=== PATIENT | female | born 1995 ===

== ENCOUNTER 2019-09-19 18:27 | Inpatient (IN) | payer MEDICAID, SELFPAY ==
[2019-09-19 18:27] VITALS: BP 131/95; PULSE 128; RESP 17; O2SAT 98; BMI 24.0
--- NOTE | 2019-09-19 18:36 | XR_ITS ---
WS: [id number] PORTABLE CHEST HISTORY: cough COMPARISON: None available. Lungs are clear and well expanded. No pleural effusion or pneumothorax. Cardiac size: Normal. Mediastinum/Aorta: Normal mediastinum. No osseous abnormality seen. XR/XR chest 1V portable [id number] IMPRESSION: Unremarkable portable chest.
--- NOTE | 2019-09-19 18:36 | ECG_ITS ---
Measurements Intervals [place] Rate: 109 P: 74 AR: 142 QRS: 85 QRSD: 80 T: 53 QT: 371 QTc: 502 SINUS TACHYCARDIA RIGHT ATRIAL ENLARGEMENT [0.3mV P WAVE] LEFT ATRIAL ENLARGEMENT [-0.15mV P WAVE IN V1/V2] NONSPECIFIC ST & T-WAVE ABNORMALITY No previous ECG available for comparison Electronically Signed On 09-20-2019 20:29:13 CDT by Cabrera Maynard M.D. [id number]
--- NOTE | 2019-09-19 18:41 | ED_ITS ---
HPI - Psych General: Chief Complaint: Psychiatric Symptoms Stated Complaint: ams Time Seen by Provider: 09/19/19 18:33 History of Present Illness: HPI Narrative: Sandra is a 24-year-old female brought in by EMS after family called due to her erratic behavior. The patient was dropped off at their house by someone and she was acting erratic and appeared to be hallucinating. Here the patient does not reliably answer any questions and appears to be talking and seeing people that are not there. She appears acutely psychotic. She is somewhat agitated and aggravated and show signs of hostility to me and nursing staff. Review of Systems General: Reports: ROS unobtainable due to mental status PFSH ED PFSH: Social History Smoking and tobacco status: unknown if ever smoked Physical Exam Const: EXAM LIMITATIONS: altered mental status and behavioral limitations GENERAL APPEARANCE: anxious and combative ORIENTATION/CONSCIOUSNESS: Yes awake HENMT: COMMON NORMALS: normocephalic, head/scalp atraumatic, hearing grossly normal bilaterally, external ears normal, EAC's normal, external nose normal and moist oral mucous membranes HEAD & SCALP: normal to inspection, normocephalic and atraumatic FACE & SINUS: normal facial exam and face symmetric NOSE: external nose normal and nares normal EXTERNAL EAR: Yes external ears normal EXTERNAL AUDITORY CANAL: EAC's normal MOUTH: oral and palatal mucosa normal and tongue normal Eye: COMMON NORMALS: PERRL, EOMs intact bilaterally, conjunctivae normal and no scleral icterus GENERAL EYE: normal appearance of both eyes and normal light reflex CONJUNCTIVA: Yes conjunctivae normal SCLERA: sclerae normal CORNEA: Yes corneas normal PUPIL: Yes PERRL DIRECT OPHTHALMOSCOPY: Yes normal light reflex Neck/C-Spine: COMMON NORMALS: full ROM, no lymphadenopathy, supple, no meningeal signs and no JVD GENERAL: Yes normal visual inspection and Yes trachea midline CERVICAL SPINE: Yes cervical ROM normal Chest: COMMONS NORMALS: inspection of chest normal and palpation of chest normal Resp: COMMON NORMALS: normal respiratory effort, no retractions, no use of accessory muscles and clear to auscultation bilaterally EFFORT & INSPECTION: Yes able to speak in complete sentences AUSCULTATION: clear to auscultation bilaterally Cardio: COMMON NORMALS: no JVD, regular rhythm, S1 normal heart sound, S2 normal heart sound, no gallops, no clicks, no murmurs and no rub JUGULAR VENOUS DISTENTION: no JVD RATE: tachycardic RHYTHM: regular rhythm HEART SOUNDS: S1 normal and S2 normal GI: COMMON NORMALS: soft to palpation, non-tender, no hepatosplenomegaly and no masses INSPECTION: Yes normal to inspection PALPATION: Yes soft and Yes no hepatosplenomegaly : COMMON NORMALS: Yes no CVA tenderness BLADDER/KIDNEY EXAM: Yes no CVA tenderness Back/Pelvis: COMMON NORMALS: no CVA tenderness, thoracic and lumbar spine normal to inspection, no thoracic nor lumbar tenderness and thoraco-lumbar ROM normal Extremity: COMMON NORMALS: normal to inspection, full ROM, normal capillary refill, no joint enlargement, no clubbing, cyanosis or edema and no calf tenderness Neuro: COMMON NORMALS: CN's II-XII intact bilaterally, moves all extremities, no focal motor deficits and no sensory deficits noted MENINGEAL SIGNS: Yes no meningeal signs Psych: APPEARANCE: Yes disheveled ATTITUDE: Yes uncooperative and Yes agitated ACTIVITY/MOTOR BEHAVIOR: Yes avoids eye contact MOOD & AFFECT: Yes irritable THOUGHT PROCESS: confabulating ATTENTION/CONCENTRATION: Yes concentration grossly impaired INSIGHT: poor OTHER: Patient appears to be actively hallucinating. Skin: COMMON NORMALS: no rashes or lesions noted, skin turgor normal, no jaundice, no petechiae and no mottling GENERAL SKIN EXAM: no rashes or lesions noted and turgor normal MDM - Psych MDM Narrative: Medical decision making narrative: 2110 - Case reviewed with Mariajose Lyon. He agrees to admission and is okay without a urine drug screen being obtained. The patient at this time is resting comfortably unless stimulated and then she fights. We will try to start removing her restraints at this time. 2145 -patient's labs are unremarkable. She is resting comfortably and 3 restraints have been removed we will remove the last one now. A bed is been obtained we will take the patient down to the neuropsychiatric unit as soon as possible. The patient was told that she was under a 96-hour hold. Lab Data: Labs: Lab Results 09/19/19 09/19/19 09/19/19 Range/Units 08:20 08:20 08:20 WBC 8.2 (4.0-10.0) 10^3/ uL RBC 4.75 (4.1-5.3) 10^6/u L Hgb 14.9 (11.5-15.3) g/dL Hct 43.6 (37.0-47.0) % MCV 91.8 (81-99) fL MCH 31.4 (28.0-34.0) pg MCHC 34.2 (30.0-36.0) g/dL RDW 13.2 (12.1-15.1) % Plt Count 365 (130-400) 10^3/c mm MPV 9.2 (7.4-10.4) fL Neut % (Auto) 54.6 % Lymph % (Auto) 33.1 % [place] % (Auto) 9.5 % Eos % (Auto) 1.6 % Baso % (Auto) 1.0 % Neut # (Auto) 4.5 (1.8-7.7) 10^3/u L Lymph # (Auto) 2.7 (0.8-4.8) 10^3/u L [place] # (Auto) 0.8 (0.2-0.9) 10^3/u L Eos # (Auto) 0.1 (0.0-0.8) 10^3/u L Baso # (Auto) 0.1 (0.0-0.1) 10^3/u L Nucleated RBC % (a uto) 0 % Nucleated RBCs # 0.0 /100WBC Sodium 136 (136-145) mmol/L Potassium 3.6 (3.5-5.1) mmol/L Chloride 98 (98-107) mmol/L Carbon Dioxide 21 L (22-29) mmol/L Anion Gap 20.6 H (5-19) BUN 17 (6-20) mg/dL Creatinine 0.8 (0.5-0.9) mg/dL GFR Calculation 88.9 L (90-130) mL/min Glucose 93 (65-115) mg/dL Calculated Osmolal ity 278 L (285-295) mOsm/k g Calcium 9.5 (8.5-10.5) mg/dL Magnesium 2.2 (1.7-2.3) mg/dL Total Bilirubin 0.8 (0.15-1.2) mg/dL AST 25 (0-32) U/L ALT 19 (0-33) U/L Alkaline Phosphata se 82 (35-105) IU/L Creatine Kinase 277 H (26-192) U/L Total Protein 8.1 (6.6-8.7) g/dL Albumin 4.9 (3.5-5.2) g/dL Globulin 3.2 (1.3-4.6) g/dL TSH 1.23 (0.27-4.20) uIU/ mL HCG, Qual Negative (Negative) Salicylates 0.4 L (3-10) mg/dL Acetaminophen < 5.0 L (10-30) ug/mL Phenytoin 0.8 L (10-20) ug/mL Valproic Acid 2.8 L (50-100) mcg/mL Carbamazepine 2.0 L (4.0-12.0) ug/mL [place] (0.6-1.2) mmol/L Ethyl Alcohol < 10 (0-10) mg/dL 09/19/19 Range/Units 08:20 WBC (4.0-10.0) 10^3/ uL RBC (4.1-5.3) 10^6/u L Hgb (11.5-15.3) g/dL Hct (37.0-47.0) % MCV (81-99) fL MCH (28.0-34.0) pg MCHC (30.0-36.0) g/dL RDW (12.1-15.1) % Plt Count (130-400) 10^3/c mm MPV (7.4-10.4) fL Neut % (Auto) % Lymph % (Auto) % [place] % (Auto) % Eos % (Auto) % Baso % (Auto) % Neut # (Auto) (1.8-7.7) 10^3/u L Lymph # (Auto) (0.8-4.8) 10^3/u L [place] # (Auto) (0.2-0.9) 10^3/u L Eos # (Auto) (0.0-0.8) 10^3/u L Baso # (Auto) (0.0-0.1) 10^3/u L Nucleated RBC % (a uto) % Nucleated RBCs # /100WBC Sodium (136-145) mmol/L Potassium (3.5-5.1) mmol/L Chloride (98-107) mmol/L Carbon Dioxide (22-29) mmol/L Anion Gap (5-19) BUN (6-20) mg/dL Creatinine (0.5-0.9) mg/dL GFR Calculation (90-130) mL/min Glucose (65-115) mg/dL Calculated Osmolal ity (285-295) mOsm/k g Calcium (8.5-10.5) mg/dL Magnesium (1.7-2.3) mg/dL Total Bilirubin (0.15-1.2) mg/dL AST (0-32) U/L ALT (0-33) U/L Alkaline Phosphata se (35-105) IU/L Creatine Kinase (26-192) U/L Total Protein (6.6-8.7) g/dL Albumin (3.5-5.2) g/dL Globulin (1.3-4.6) g/dL TSH (0.27-4.20) uIU/ mL HCG, Qual (Negative) Salicylates (3-10) mg/dL Acetaminophen (10-30) ug/mL Phenytoin (10-20) ug/mL Valproic Acid (50-100) mcg/mL Carbamazepine (4.0-12.0) ug/mL [place] 0.1 L (0.6-1.2) mmol/L Ethyl Alcohol (0-10) mg/dL EKG Data^: EKG 1: Attestation: I personally reviewed and interpreted this EKG as follows: EKG interpretation date: 09/19/19 EKG interpretation time: 21:24 Interpretation: Normal sinus rhythm @ 109, NAD, normal QTc. Discharge Plan Discharge Patient Disposition: Admitted As Inpatient Clinical Impression: Acute psychosis Condition: Stable Coding Level of Care Code ED Data Miner for Chg Fwd Exam Comprehensive
[2019-09-19] MEDS: LORazepam 2 mg/mL INJ 1 mL IM (18:50)
--- NOTE | 2019-09-19 18:57 | PC.NURSE ---
Pt was highly uncooperative with triage assessment. Pt was evaluated by Dr Hui at approx 1830 with an order for 96 hour hold at 1831. Ativan was ordered for pt and pt was given option to take shot for agitation and aggression. Pt was threatening staff and attempting to punch security and this nurse. Dr Hui again came to speak with pt regarding 96 hour hold and medication. Pt continued to be aggressive and try to attack staff. Pt was placed in restraint bed by security, this nurse, Julia Tobar RN and Theodore Salcedo RN. Pt was kicking and hitting staff. Pt given 2mg Ativan IM to right deltoid at 1850. Security at bedside with pt. Pt educated on release from restraints upon cooperative behavior.
[2019-09-19] MEDS: haloperidol inj 5 mg/mL INJ 1 mL IM (19:47)
[2019-09-19 20:28] LABS: Basophils # 0.1 10^3/uL (0.0-0.1); Eosinophils # 0.1 10^3/uL (0.0-0.8); Eosinophils % 1.6 %; Hematocrit 43.6 % (37.0-47.0); Hemoglobin 14.9 g/dL (11.5-15.3); Lymphocytes # 2.7 10^3/uL (0.8-4.8); Lymphocytes % 33.1 %; Mean Corpuscular HGB Conc 34.2 g/dL (30.0-36.0); Mean Corpuscular Hemoglobin 31.4 pg (28.0-34.0); Mean Corpuscular Volume 91.8 fL (81-99); Mean Platelet Volume 9.2 fL (7.4-10.4); Monocytes # 0.8 10^3/uL (0.2-0.9); Monocytes % 9.5 %; Neutrophils # 4.5 10^3/uL (1.8-7.7); Neutrophils % 54.6 %; Nucleated Red Blood Cells % 0 %; Platelet Count 365 10^3/cmm (130-400); Red Blood Count 4.75 10^6/uL (4.1-5.3); Red Cell Distribution Width 13.2 % (12.1-15.1); White Blood Count 8.2 10^3/uL (4.0-10.0)
--- NOTE | 2019-09-19 20:33 | PC.NURSE ---
pt. was yelling and demanding pain meds I wxplained to her ia was giving her the med the Dr ordered, she then states she was going home AMA the was informed. he talked to her anad told her she could not go home because she did not have a ride ahd she was too intoxicated to leave. the ordered IV haldol and this was given
[2019-09-19 20:38] LABS: HCG, Serum Qual Negative (Negative)
[2019-09-19 20:46] LABS: Lithium 0.1 mmol/L (0.6-1.2)
[2019-09-19] MEDS: sodium chloride 0.9% 1,000 ML 999 ML IV ×2 (20:48→23:03)
[2019-09-19 20:55] LABS: Alanine Aminotransferase 19 U/L (0-33); Albumin Level 4.9 g/dL (3.5-5.2); Alkaline Phosphatase 82 IU/L (35-105); Anion Gap 20.6 (5-19); Aspartate Amino Transferase 25 U/L (0-32); Blood Urea Nitrogen 17 mg/dL (6-20); Calcium 9.5 mg/dL (8.5-10.5); Carbon Dioxide 21 mmol/L (22-29); Chloride 98 mmol/L (98-107); Creatine Phosphokinase 277 U/L (26-192); Globulin 3.2 g/dL (1.3-4.6); Glomerular Filtration Rate 88.9 mL/min (90-130); Glucose 93 mg/dL (65-115); Magnesium 2.2 mg/dL (1.7-2.3); Osmolality Calculated 278 mOsm/kg (285-295); Phenytoin Dilantin 0.8 ug/mL (10-20); Potassium 3.6 mmol/L (3.5-5.1); Salicylate 0.4 mg/dL (3-10); Sodium 136 mmol/L (136-145); Thyroid Stimulating Hormone 1.23 uIU/mL (0.27-4.20); Total Bilirubin 0.8 mg/dL (0.15-1.2); Total Protein 8.1 g/dL (6.6-8.7); Valproic Acid Level 2.8 mcg/mL (50-100)
[2019-09-19 20:57] LABS: Acetaminophen < 5.0 ug/mL (10-30); Alcohol Level < 10 mg/dL (0-10)
[2019-09-19] MEDS: diphenhydrAMINE 50 mg/mL SDV 1mL IVP (21:15)
--- NOTE | 2019-09-19 22:44 | PC.NURSE ---
pt. resting I attempted to take VS, she is uncoopetive and attempts to swing and kick. the was informed of this information
[2019-09-19] MEDS: haloperidol inj 5 mg/mL INJ 1 mL 2.5 MG IM (23:07)
[2019-09-19 23:14] VITALS: BP 139/83; PULSE 87; RESP 16; O2SAT 100
[2019-09-20 00:51] VITALS: BP 139/83; PULSE 87; RESP 16; O2SAT 100
--- NOTE | 2019-09-20 01:21 | PC.NURSE ---
Vital Signs used from Emergency Department prior to arrival on the unit at 0015 on 09/20/2019. Patient is combative at this time.
--- NOTE | 2019-09-20 01:24 | PC.NURSE ---
Pt arrived from the ED at 0015, sedated, unable to answer questions, unable to participate in admission. Resp easy, non labored, no distress noted. Assisted to bed by staff, Initiated q 15 min checks on arrival. Continue to monitor.
[2019-09-20 05:51] VITALS: BP 128/83; PULSE 96; RESP 16; TEMP 36.7; O2SAT 100
--- NOTE | 2019-09-20 11:58 | PM.NHP ---
Providers/Chief Complaint Admitting Physician: Pérez Lyon MD Primary Care Provider: Oscar Perry MD Chief Complaint: ams HPI NPU History of Present Illness Chief complaint: I do not want to. History of present illness: Sandra Hood is a 24-year-old woman with no prior psychiatric history who was admitted to the psychiatric unit under the conditions described by the ER physician note below. She is sedated through hospital day #2 and was refusing to participate in any type of individual interview. Thus, we have no information other than that acquired by the emergency room staff and her medical record. The affidavit for commitment details her degree of psychosis and the impression that this is most likely drug-induced. However no urine drug screen was ever performed. ER physician note Sandra is a 24-year-old female brought in by EMS after family called due to her erratic behavior. The patient was dropped off at their house by someone and she was acting erratic and appeared to be hallucinating. Here the patient does not reliably answer any questions and appears to be talking and seeing people that are not there. She appears acutely psychotic. She is somewhat agitated and aggravated and show signs of hostility to me and nursing staff. Mental health history: There is no record of receiving mental health services. There is no record of her being admitted to the psychiatric unit. Social history: Unknown Legal history: traffic ticket in 2019 Past medical history: Patient is unable to relate any information regarding her hospitalization or medical history. Please refer to emergency room notes for further data. Meds NPU Home Medications Medication Instructions Recorded Confirmed Last Taken Type Unable to Assess 09/19/19 09/19/19 Unknown History Allergies Allergy/AdvReac Type Severity Reaction Status Date / Time No Known Allergies Allergy Verified 09/19/19 18:36 PFS NPU PFSH: Social History Smoking and tobacco status: unknown if ever smoked Mental Status Exam MSE Comments: Mental Status Exam: Appearance: The patient is a laying in bed and on encounter, she is in no apparent distress. She arouses with verbal stimuli but quickly goes back to sleep. There are no abnormal involuntary movements noted. Speech: Speech is of normal rate and rhythm and easily understood. Thought processes: Unable to assess Associations: Unable to assess Psychotic processes: Unable to assess Judgment: Unable to assess. Orientation: Unable to assess. Memory: Unable to assess. Attention: Unable to assess. Language Unable to assess. Fund of knowledge: Unable to assess. Affect/Mood: Unable to assess. Psychosis: Unable to assess. Diagnoses: Psychotic disorder?not otherwise specified Assessment: This presentation by emergency room description and my observation this morning would be consistent with psychosis resulting from substance use, most likely methamphetamine just on probablistic data. However this morning she we are not able to assess that and we do not have a urine drug screen to confirm or deny. Vitals/I&O/Wt Last Vital Signs Temp 98.1 F 09/20/19 05:51 Pulse 96 09/20/19 05:51 Resp 16 09/20/19 05:51 BP 128/83 09/20/19 05:51 Pulse Ox 100 09/20/19 05:51 09/19/19 09/20/19 09/20/19 22:59 06:59 14:59 Intake Total 1000 / 1000 1000 / 2000 Balance 1000 / 1000 1000 / 2000 Weight last 48 hrs Weight 63.503 kg Data NPU : 09/19/19 08:20 09/19/19 08:20 A&P Additional A&P Information Assessment: This presentation by emergency room description and my observation this morning would be consistent with psychosis resulting from substance use, most likely methamphetamine just on probablistic data. However this morning she we are not able to assess that and we do not have a urine drug screen to confirm or deny. Treatment plan: Due to the psychiatric conditions and treatment listed in the Assessment and Plan - the patient requires continued hospitalization. Will provide a safe and therapeutic environment for patient.. Will continue inpatient treatment to allow for medication adjustment and monitoring. Will continue q15 min safety checks. Will continue substance use protocol. Monitor patient's mood, sleep, appetite, and behavior closely. Encourage patient to participate in individual and group therapeutic sessions on the [place]on. Estimated length of stay 5 days The expected benefits and potential side effects of patient's psychiatric medications were discussed with the patient. The patient understands and consents to treatment. CRITERIA FOR DISCHARGE: stable on medications and no longer an imminent risk to self or others Involuntary Hold Information 96 Hour Hold: 96 Hour Involuntary Admission: Yes 96 Hour Hold Ending Date: 09/25/19 96 Hour Hold Ending Time: 18:31 Attestations NPU Medical Necessity Statement*: Patient will remain in the hospital another 2-4 nights for completion of her 96-hour involuntary commitment. Coding Level of Care Code Acute Winchman/Crane Operator for Sylwia Thomas
[2019-09-20 14:00] VITALS: BP 152/82; PULSE 95; RESP 20; TEMP 36.9; O2SAT 98
[2019-09-20 16:41] LABS: Bilirubin Urine Neg (NEGATIVE); Blood Urine Neg (Negative); Glucose Urine UA Norm (Normal); Ketones Urine 1+ (Negative); Leukocyte Esterase Urine Negative (Negative); Nitrate Urine Negative (Negative); Protein Urine Neg (Negative); Specific Gravity, Urine 1.025 (1.005-1.030); Urine Appearance SL Hazy (CLEAR); Urine Color Yellow (Yellow); Urobilinogen Urine Norm (Negative); pH Urine 5 (5-7)
[2019-09-20 16:42] LABS: Add Urine Culture? No; Amorphous Sediment Urine 2+; Bacteria Urine 1+; Squamous Epithelial Cell Urine 0-4 (0-5); WBC Urine 0-4 /hpf (0-5)
[2019-09-20 16:47] LABS: Amphetamines Screen Urine Positive (Negative); Barbiturates Screen Urine Negative (Negative); Benzodiazepines Screen Urine Positive (Negative); Cocaine Screen Urine Positive (Negative); Opiate Screen Urine Positive (Negative); PCP Screen Urine Negative (Negative); THC Screen Urine Negative (Negative)
[2019-09-20 22:00] VITALS: BP 98/64; PULSE 72; RESP 17; TEMP 37.1; O2SAT 98
[2019-09-21 06:00] VITALS: BP 139/86; PULSE 88; RESP 16; TEMP 37; O2SAT 92
[2019-09-21 09:42] VITALS: BP 139/86; PULSE 88; RESP 16; TEMP 37; O2SAT 92
--- NOTE | 2019-09-21 10:51 | PM.NDC ---
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 History of present illness: Sandra Hood is a 24-year-old woman with no prior psychiatric history who was admitted to the psychiatric unit under the conditions described by the ER physician note below. She is sedated through hospital day #2 and was refusing to participate in any type of individual interview. Thus, we have no information other than that acquired by the emergency room staff and her medical record. The affidavit for commitment details her degree of psychosis and the impression that this is most likely drug-induced. However no urine drug screen was ever performed. ER physician note Sandra is a 24-year-old female brought in by EMS after family called due to her erratic behavior. The patient was dropped off at their house by someone and she was acting erratic and appeared to be hallucinating. Here the patient does not reliably answer any questions and appears to be talking and seeing people that are not there. She appears acutely psychotic. She is somewhat agitated and aggravated and show signs of hostility to me and nursing staff. Mental health history: There is no record of receiving mental health services. There is no record of her being admitted to the psychiatric unit. Social history: Unknown Legal history: traffic ticket in 2019 Past medical history: Patient is unable to relate any information regarding her hospitalization or medical history. Please refer to emergency room notes for further data. Hospital Course Discharge Summary The patient was admitted to the adult psychiatric unit and entered into the form of individual and group therapies as part of the unit protocol. They were provided 24-hour access to medication supervision and therapeutic activities by trained psychiatric nursing. The patient was educated with regard to potential benefits and side effects of new medications. We agreed to a contingency plan of discontinuation of medication in the event of intolerable side effects. Over the first 24 hours, her mental status was dominated by her degree of sedation primarily due to the medications that were required to calm her agitation in the emergency room. Once those wore off, she was alert and oriented in all spheres. She acknowledged that the reason for her coming into the hospital and becoming so delirious was that she added cocaine to her amphetamines. She says that she uses amphetamines on a regular basis. She does not intend to stop doing that. She recognizes that it is a long-term problem and someday expects that she will go into rehab so that she can become clean and sober and take care of her child but not right now. She is not an imminent risk to self or others in terms of intentional harm or suicide attempt. She states that there is nothing that we can do for her. As it turns out, the patient was here almost exactly 1 year ago. Her records did not come up in a search immediately because she was admitted under the name Andrey. Hospital course was also very similar. She was not compliant with follow-up at that time. It was recommended that she stay and we reinitiate the medications. However once she was informed that she was no longer an imminent risk to self or others and was taken off the 96-hour involuntary commitment, she decided to leave AGAINST MEDICAL ADVICE. Involuntary Hold Information 96 Hour Hold: 96 Hour Involuntary Admission: Yes 96 Hour Hold Ending Date: 09/25/19 96 Hour Hold Ending Time: 18:31 Mental Status Exam MSE Comments: Discharge Mental Status Exam: The patient is alert and interpersonally engaged. Her hygiene is poor. Eye contact is good. Appearance: hygiene is poor; no gross neurological deficits., gait is unremarkable; AIMS=0 Speech: Speech is of normal rate and rhythm and easily understood. Thought processes: Thought processes are abstract. Judgment is poor but adequate for safety. Associations: intact Psychotic processes: There is no indication of guarding or paranoia. There is no attention to the internal stimuli. Auditory and visual hallucinations are denied. Judgment: Insight is fair. Problem solving skills are adequate for safety. Orientation: The patient is oriented to person, place time and situation. Memory: no deficits noted in immediate, intermediate, or remote spheres. Attention: The patient is alert and interpersonally engaged. Language: Verbalizations are coherent. Fund of knowledge: Fund of knowledge is adequate. Affect/Mood: Affect is consistent with a euthymic mood. denied suicidal ideation Affective range is constricted Psychosis: perception unimpaired except through cognitive distortion; reality testing intact. Discharge Data Data Completed and Pending: Completed Studies During Hospitalization Category Date Time Status XR chest 1V cary ble [id number] Stat Exams 09/19/19 18:36 Completed Labs from last 24 hours 05/12/20 05/12/20 16:05 16:05 Urine Color Yellow Urine Appearance Sl hazy Urine pH 5 Ur Specific Gravit y 1.025 Urine Protein Neg Urine Glucose (UA) Norm Urine Ketones 1+ H Urine Blood Neg Urine Nitrate Negative Urine Bilirubin Neg Urine Urobilinogen Norm Ur Leukocyte Tonie ase Negative Urine RBC None Urine WBC 0-4 H Ur Squamous Epith Cells 0-4 H Amorphous Sediment 2+ Urine Bacteria 1+ H Urine Opiates Scre en Positive H Ur Barbiturates Sc reen Negative Ur Phencyclidine S crn Negative Ur Amphetamines Sc reen Positive H U Benzodiazepines Scrn Positive H Urine Cocaine Scre en Positive H U Marijuana (THC) Screen Negative Vitals: Last Vital Signs Temp 98.6 F 09/21/19 09:42 Pulse 88 09/21/19 09:42 Resp 16 09/21/19 09:42 BP 139/86 09/21/19 09:42 Pulse Ox 92 09/21/19 09:42 Discharge Plan Discharge Patient Disposition: Left Against Medical Advice Condition: Stable Prescriptions: No Action Unable to Assess RF: 0 Discharge Orders: Discharge Order (Routine); Ordered 09/21/19 Ordered By: Pérez Lyon Ref[place]: [facility] [Outside] - 4-7 days (to initiate services you will need to contact [facility] ([facility]). They have walk-in services on Wednesday through Wednesday 7:30 a.m. -2:30 p.m. ) [facility] [Outside] (if interested, you may contact [facility] for substance abuse treatment for outpatient or residential care. ) Oscar Perry MD [Primary Care Provider] - Discharge Diet: Usual diet Discharge Activity: Increase activity as tolerated Discharge Date/Time: 09/21/19 11:00 Discharge Attestations NPU Time Spent in Discharge Care*: greater than 30 min Coding Level of Care Code Acute Tool Grinder Set Up Operator Gear for Chg Fwd Diagnoses Amphetamine abuse, continuous F15.10 Amphetamine-induced psychotic disorder with hallucinations F15.951
== END 2019-09-21 11:00 | disposition left against medical advice (07) | DRG 894 ==
LOC: ER 21:11 → NP 21:57
PROVIDERS: Emergency Medicine; Admitting Provider Psychiatry & Neurology Psychiatry; PCP Family Medicine; Visit Provider Psychiatry & Neurology Psychiatry
DX: F15.151 Other stimulant abuse with stimulant-induced psychotic disorder with hallucinations (principal); Z53.29 Procedure and treatment not carried out because of patient's decision for other reasons; F14.951 Cocaine use, unspecified with cocaine-induced psychotic disorder with hallucinations
CPT/HCPCS: 12345; 71045; 80053; 80156; 80164; 80178; 80185; 80306; 80307; 81001; 82550; 83735; 84443; 84703; 85025; 93005; 96372; 99284; J1200; J1630; J2060; J7030